=== PATIENT | female | born 1995 | race Caucasian/White ===

== ENCOUNTER 2019-03-18 11:20 | Inpatient (IN) | payer MEDICAID ==
[2019-03-18] VITALS (41 sets, daily range): BP systolic 100–148; BP diastolic 51–90
--- NOTE | 2019-03-18 11:18 | NUR ---
pt transported to labor & delivery via cart accompanied by [facility]. report received. pt assisted to bed. "limited" care reported by EMS. pt reports no care during current with . pt reports seeing "tip cutter's" when FOB passed 1.5weeks ago. "thought I was going into labor". SROM @ 0900 this a.m. reports no color to fluid- describes as cloudy. EMS staff reports pt has 2.5 year old that was delivered @ [facility] in [place], [place]. "wanted to be away from family" per EMS staff. pt gowned & urine specimen obtained. EFM and TOCO applied.
[~2019-03-18 11:20] MED LIST: ARPZ20T PO; BPR100T PO; BUPR300T51 PO; MIRT30TA6 PO; NALTREXONE PO; [UNRECOGNIZED DRUG - CODE] MC
[2019-03-18] MEDS ORDERED: MINERAL OIL CONCENTRATE 99.9% 15 ML UDC TOP SCH (11:45)
[2019-03-18] MEDS ORDERED: AMPICILLIN FOR IV USE 2,000 MG VIAL ONE ×2 (11:53→11:54)
[2019-03-18] MEDS ORDERED: WATER (STERILE) FOR INJECTION 20 ML ONE (11:54)
[2019-03-18] MEDS ORDERED: AMPICILLIN FOR IV USE 2,000 MG in WATER (STERILE) FOR INJECTION 14.8 ML IV SCH (11:59)
[2019-03-18 12:18] LABS: BASOPHILS % (AUTO) 0 % (0-10); EOSINOPHILS % (AUTO) 0 % (0-10); HEMATOCRIT 35 % (35-52); HEMOGLOBIN 11.7 G/DL (11.5-16.0); LYMPHOCYTES # (AUTO) 1.8 X 10^3 (1.0-4.0); LYMPHOCYTES % (AUTO) 25 % (12-44); MEAN CORPUSCULAR HEMOGLOBIN 27 PG (25-34); MEAN CORPUSCULAR HGB CONC 34 G/DL (32-36); MEAN CORPUSCULAR VOLUME 80 FL (80-99); MONOCYTES # (AUTO) 0.4 X 10^3 (0.0-1.0); MONOCYTES % (AUTO) 5 % (0-12); NEUTROPHILS % (AUTO) 70 % (42-75); PLATELET COUNT 269 10^3/uL (130-400); WHITE BLOOD COUNT 7.2 10^3/uL (4.3-11.0)
[2019-03-18 12:36] LABS: BILIRUBIN,URINE NEGATIVE (NEGATIVE); CLARITY,URINE CLEAR; COLOR,URINE YELLOW; GLUCOSE, URINE (UA) NEGATIVE (NEGATIVE); KETONES,URINE NEGATIVE (NEGATIVE); LEUKOCYTE ESTERASE ,URINE 1+ (NEGATIVE); NITRITE,URINE NEGATIVE (NEGATIVE); PH,URINE 7 (5-9); PROTEIN,URINE 3+ (NEGATIVE)
[2019-03-18 12:48] LABS: AMPHETAMINE SCREEN, URINE NEGATIVE (NEGATIVE); BARBITURATE SCREEN URINE NEGATIVE (NEGATIVE); BENZODIAZEPINES SCREEN URINE NEGATIVE (NEGATIVE); CANNABINOID SCREEN, URINE NEGATIVE (NEGATIVE); COCAINE SCREEN URINE NEGATIVE (NEGATIVE); METHADONE STAT NEGATIVE (NEGATIVE); METHAMPHETAMINE SCREEN URINE S POSITIVE (NEGATIVE); OPIATE SCREEN URINE NEGATIVE (NEGATIVE); OXYCODONE STAT NEGATIVE (NEGATIVE); PROPOXYPHENE STAT NEGATIVE (NEGATIVE); TRICYCLIC ANTIDEPRESSANTS SCRE NEGATIVE (NEGATIVE)
[2019-03-18 12:50] LABS: BACTERIA,URINE LARGE /HPF
[2019-03-18] MEDS ORDERED: CATHETER FLUSH 10 ML SYR IV SCH (14:00)
[2019-03-18] MEDS: AMPICILLIN FOR IV USE 1,000 MG in WATER (STERILE) FOR INJECTION 7.4 ML IV SCH ×2 (16:00→19:24)
[2019-03-18] MEDS ORDERED: OXYTOCIN/NORMAL SALINE 500 ML IV SCH ×2 (17:18→23:02)
[2019-03-18] MEDS ORDERED: OXYTOCIN/NORMAL SALINE 500 ML IV ONE (17:20)
[2019-03-18] MEDS ORDERED: SUFENTA 0.6MCG/ML BUPIVA 0.125 100 ML ONE (19:24)
[2019-03-18] MEDS: D5 LR IV SOLUTION 1,000 ML IV SCH (19:29)
[2019-03-18] MEDS ORDERED: LACTATED RINGERS 1,000 ML IV ONE (20:06)
[2019-03-18] MEDS ORDERED: ONDANSETRON 4 MG/2 ML (SDV) Z0FRAN IV PRN (20:15)
[2019-03-18] MEDS ORDERED: EPIDURAL (SUFENTA 0.6MCG/ML BUPIVA 0.125%) 100 ML BAG EPI PRN (20:15)
[2019-03-18] MEDS ORDERED: NALOXONE 0.4 MG/ML 1 ML (NARCAN) VIAL IV PRN ×2 (20:15)
[2019-03-18] MEDS ORDERED: diphenhydrAMINE 50 MG/ML INJ (BENADRYL) IV PRN (20:15)
[2019-03-18] MEDS ORDERED: METOCLOPRAMIDE INJ 10 MG/2 ML (REGLAN) IV PRN (20:15)
--- NOTE | 2019-03-18 20:19 | History & Physical-OB ---
OB - Chief Complaint & HPI Date/Time Date of Admission: Date of Admission: Mar 18, 2019 at 11:20 Date seen by a Provider: Mar 18, 2019 Time Seen by a Provider: 17:30 Chief Complaint/History OB-Reason for Admission/Chief: Rupture of Membranes Hx : 2 Hx Para: 1 Expected Date of Delivery: Mar 22, 2019 Gestational Age in Weeks: 39 Gestational Age in Days: 3 Allergies and Home Medications Allergies Coded Allergies: No Known Drug Allergies (Unverified , 04/05/12) Home Medications Aripiprazole 20 Mg Tab, 1 TAB PO HS, (Reported) DAILY Bupropion Hcl 300 Mg Tab.sr.24h, 300 MG PO DAILY, (Reported) Mirtazapine 30 Mg Tablet, 1 EACH PO HS, (Reported) [Naltrexone] , 50 MG PO DAILY, (Reported) Patient Home Medication List Home Medication List Reviewed: Yes OB - History Hx of Present Care: No Ultrasounds: No ultrasounds Medical Complications: Psychiatric Other Concerns: no care; positive UDS for meth on presentation today Delivery History Hx Blood Disorders: No Adverse Rxn to Tranfusion: No Patient Past Medical History depression/anxiety Social History/Family History Recent Infectious Disease Expo: No Alcohol Use: Denies Use Recreational Drug Use: Yes Immunizations Hepatitis A: Yes Hepatitis B: Yes OB - Admission Exam Physical Exam Vitals: Vital Signs 03/18/19 03/18/19 17:20 18:20 Temp 36.7 Pulse 97 Resp 20 B/P (MAP) 121/73 (89) Pulse Ox 100 O2 Delivery Room Air HEENT: NCAT Heart: Rhythm Normal Lungs: Clear Abdomen: Gravid Extremities: Normal Reflexes: Normal Cervical Dilatation: 5cm Effacement: 75% Station: 0 Membranes: Ruptured Amniotic Fluid: Clear Heart Rate: 130's Accelerations: Accelerations Present Decelerations: No Decelerations Short Term Variability: Present Care Home Variability: Average (6-25) Contractions on Admission: < 5 Minutes Apart Labs Laboratory Tests Test 03/18/19 11:25 03/18/19 11:55 Range/Units Urine Color YELLOW Urine Clarity CLEAR Urine pH 7 5-9 Urine Specific [place] 1.010 L 1.016-1.022 Urine Protein 3+ H NEGATIVE Urine Glucose (UA) NEGATIVE NEGATIVE Urine Ketones NEGATIVE NEGATIVE Urine Nitrite NEGATIVE NEGATIVE Urine Bilirubin NEGATIVE NEGATIVE Urine Urobilinogen NORMAL NORMAL MG/DL Urine Leukocyte Esterase 1+ H NEGATIVE Urine RBC (Auto) 4+ H NEGATIVE Urine RBC NONE /HPF Urine WBC 5-10 H /HPF Urine Squamous Epithelial Cells 5-10 /HPF Urine Crystals NONE /LPF Urine Bacteria LARGE H /HPF Urine Casts NONE /LPF Urine Mucus SMALL H /LPF Urine Culture Indicated YES Urine Opiates Screen NEGATIVE NEGATIVE Urine Oxycodone Screen NEGATIVE NEGATIVE Urine Methadone Screen NEGATIVE NEGATIVE Urine Propoxyphene Screen NEGATIVE NEGATIVE Urine Barbiturates Screen NEGATIVE NEGATIVE Ur Tricyclic Antidepressants Screen NEGATIVE NEGATIVE Urine Phencyclidine Screen NEGATIVE NEGATIVE Urine Amphetamines Screen NEGATIVE NEGATIVE Urine Methamphetamines Screen POSITIVE H NEGATIVE Urine Benzodiazepines Screen NEGATIVE NEGATIVE Urine Cocaine Screen NEGATIVE NEGATIVE Urine Cannabinoids Screen NEGATIVE NEGATIVE White Blood Count 7.2 4.3-11.0 10^3/uL Red Blood Count 4.32 L 4.35-5.85 10^6/uL Hemoglobin 11.7 11.5-16.0 G/DL Hematocrit 35 35-52 % Mean Corpuscular Volume 80 80-99 FL Mean Corpuscular Hemoglobin 27 25-34 PG Mean Corpuscular Hemoglobin Concent 34 32-36 G/DL Red Cell Distribution Width 15.0 H 10.0-14.5 % Platelet Count 269 130-400 10^3/uL Mean Platelet Volume 11.0 H 7.4-10.4 FL Neutrophils (%) (Auto) 70 42-75 % Lymphocytes (%) (Auto) 25 12-44 % Monocytes (%) (Auto) 5 0-12 % Eosinophils (%) (Auto) 0 0-10 % Basophils (%) (Auto) 0 0-10 % Neutrophils # (Auto) 5.0 1.8-7.8 X 10^3 Lymphocytes # (Auto) 1.8 1.0-4.0 X 10^3 Monocytes # (Auto) 0.4 0.0-1.0 X 10^3 Eosinophils # (Auto) 0.0 0.0-0.3 10^3/uL Basophils # (Auto) 0.0 0.0-0.1 10^3/uL OB - Assessment/Plan/Diagnosis Assessment Admission Dx PROM at 39 3/7 wga by LMP with no care- Will treat for GBS unknown. Check labs. Place IUPC and start pitocin for failure to progress. Admission Status: Inpatient Order (span 2 midnights) Reason for Inpatient Admission: Labor. Plan Plan: Other (pitocin augmentation) MASSIMO LOPEZ MD Mar 18, 2019 20:19
[2019-03-18] MEDS ORDERED: LIDOCAINE 1% INJ 20 ML 20 ML VIAL ONE (22:16)
--- NOTE | 2019-03-18 23:01 | OB Labor & Delivery Record ---
Vag Delivery Note Vag Delivery Note Date of Delivery: 03/18/19 Preoperative Diagnosis: Herlinda Coello is a (23 /Para 2 / 1, Gestational Age (wks)39with [3 days] Postoperative Diagnosis: Same Surgeon: MASSIMO LOPEZ Net Development Manager: [none] Anesthesia: [epidural] Delivery Type: [] Findings: [] Viable [male] infant, apgars [9/9], weight [8 pounds 0 ounces] Lacerations: Intact placenta with 3 vessel cord. Loose nuchal cord times one. Estimated Blood Loss: [400] ml Complications: None Condition: Stable Description of Procedure: The patient is a 23 year old female who presented [with PROM]. She was admitted and informed consent was obtained. Her labor course was remarkable for [pitocin augmentation] She progressed to complete dilatation and began to push. She was then set up for delivery. The infant's head was delivered atraumatically in the [OA] position. The shoulders and remainder of the 's body were then delivered without difficulty. Upon delivery, the head was held below the level of the perineum and the mouth and nares were bulb suctioned. The cord was doubly clamped and cut after 30 seconds on maternal abdomen. An intact placenta with 3-vessel cord delivered via Laura and there was found to be minimal bleeding.~ Vigorous fundal massage was performed and the fundus was found to be firm. IV oxytocin was given. Examination of the vagina and perineum revealed a [left clitoral and 2nd degree perineal] laceration repaired in the usual fashion with 3-0 vicryl suture. Following the repair, sponge, instrument and needle counts were correct. Mom and baby were both in stable condition in the labor suite. Vitals - Labs Vital Signs - I&O Vital Signs Date Time Temp Pulse Resp B/P (MAP) Pulse Ox O2 Delivery O2 Flow Rate FiO2 03/18/19 21:35 66 20 113/55 (74) 100 Room Air 03/18/19 21:20 66 20 113/64 (80) 100 Room Air 03/18/19 21:00 82 20 104/57 (73) 100 Room Air 03/18/19 20:45 88 20 103/56 (72) 100 Room Air 03/18/19 20:40 84 20 102/55 (71) 100 Room Air 03/18/19 20:35 90 20 110/59 (76) 100 Room Air 03/18/19 20:30 90 20 100/52 (68) 100 Room Air 03/18/19 20:25 90 20 101/51 (68) 100 Room Air 03/18/19 20:20 94 20 108/57 (74) 100 Room Air 03/18/19 20:15 77 20 108/56 (73) 100 Room Air 03/18/19 20:10 78 20 104/58 (73) 100 Room Air 03/18/19 20:05 88 20 120/70 (87) 100 Room Air 03/18/19 20:00 82 20 119/62 (81) 100 Room Air 03/18/19 19:55 102 20 128/72 (90) 100 Room Air 03/18/19 19:50 94 20 144/65 (91) 100 Room Air 03/18/19 19:45 102 20 139/78 (98) 100 Room Air 03/18/19 19:40 97 20 142/85 (104) 100 Room Air 03/18/19 19:35 94 20 148/76 (100) 100 Room Air 03/18/19 19:15 36.5 80 20 130/75 (93) 100 Room Air 03/18/19 18:20 97 20 121/73 (89) 100 Room Air 03/18/19 17:50 87 20 129/74 (92) 100 Room Air 03/18/19 17:20 36.7 75 20 131/72 (91) 100 Room Air 03/18/19 16:50 76 20 127/72 (90) 100 Room Air 03/18/19 16:20 67 20 136/75 (95) 100 Room Air 03/18/19 16:20 67 20 136/75 (95) 100 Room Air 03/18/19 15:50 87 20 125/67 (86) 100 Room Air 03/18/19 15:20 75 20 125/62 (83) 100 Room Air 03/18/19 14:50 73 20 131/69 (89) 100 Room Air 03/18/19 14:20 81 20 131/77 (95) 100 Room Air 03/18/19 13:50 76 20 132/76 (94) 100 Room Air 03/18/19 13:20 69 20 129/72 (91) 100 Room Air 03/18/19 12:50 85 20 142/82 (102) 100 Room Air 03/18/19 12:20 85 20 142/82 (102) 100 Room Air 03/18/19 11:30 37.1 88 20 99 Room Air 03/18/19 11:30 88 20 136/90 (105) 100 Room Air Labs Laboratory Tests 03/18/19 11:25: Urine Color YELLOW, Urine Clarity CLEAR, Urine pH 7, Urine Specific [place] 1.010L, Urine Protein 3+H, Urine Glucose (UA) NEGATIVE, Urine Ketones NEGATIVE, Urine Nitrite NEGATIVE, Urine Bilirubin NEGATIVE, Urine Urobilinogen NORMAL, Urine Leukocyte Esterase 1+H, Urine RBC (Auto) 4+H, Urine RBC NONE, Urine WBC 5- 10H, Urine Squamous Epithelial Cells 5-10, Urine Crystals NONE, Urine Bacteria LARGEH, Urine Casts NONE, Urine Mucus SMALLH, Urine Culture Indicated YES, Urine Opiates Screen NEGATIVE, Urine Oxycodone Screen NEGATIVE, Urine Methadone Screen NEGATIVE, Urine Propoxyphene Screen NEGATIVE, Urine Barbiturates Screen NEGATIVE, Ur Tricyclic Antidepressants Screen NEGATIVE, Urine Phencyclidine Screen NEGATIVE, Urine Amphetamines Screen NEGATIVE, Urine Methamphetamines Screen POSITIVEH, Urine Benzodiazepines Screen NEGATIVE, Urine Cocaine Screen NEGATIVE, Urine Cannabinoids Screen NEGATIVE 03/18/19 11:55: White Blood Count 7.2, Red Blood Count 4.32L, Hemoglobin 11.7, Hematocrit 35, Mean Corpuscular Volume 80, Mean Corpuscular Hemoglobin 27, Mean Corpuscular Hemoglobin Concent 34, Red Cell Distribution Width 15.0H, Platelet Count 269, Mean Platelet Volume 11.0H, Neutrophils (%) (Auto) 70, Lymphocytes (%) (Auto) 25, Monocytes (%) (Auto) 5, Eosinophils (%) (Auto) 0, Basophils (%) (Auto) 0, Neutrophils # (Auto) 5.0, Lymphocytes # (Auto) 1.8, Monocytes # (Auto) 0.4, Eosinophils # (Auto) 0.0, Basophils # (Auto) 0.0 MASSIMO LOPEZ MD Mar 18, 2019 23:01
[2019-03-18] MEDS ORDERED: TETANUS,DIPTH,PERTUSS P/F (BOOSTRIX) 0.5 ML VIAL IM ONE (23:15)
[2019-03-18] MEDS ORDERED: MEASLES,MUMPS,RUBELLA 1 EA INJ SQ ONE (23:15)
--- NOTE | 2019-03-18 23:30 | NUR ---
pt reports last meth use was around 36 hours ago. When asked if daughter lived with her pt states "she is pasted between her grandparents" states she has never lost custody of the child but the child has only lived with her for a short period.
[2019-03-18] MEDS: IBUPROFEN 600 MG (MOTRIN) TAB PO SCH (23:49)
[2019-03-18] MEDS: BENZOCAINE/MENTHOL (DERMOPLAST) 56 ML CAN TP PRN (23:49)
[2019-03-19] VITALS (12 sets, daily range): BP systolic 105–135; BP diastolic 52–77
--- NOTE | 2019-03-19 | NUR ---
epidural cath removed. pt tolerated well.
--- NOTE | 2019-03-19 01:00 | NUR ---
ff 1 below umbilicus. moderate rubra noted. pad changed. gown changed. pt assisted to w'c. pt taken down to room 309. pt orientated to room. pt denies any urge to void at this time. safety precautions given. call light within reach. pt will notify rn when urge to void.
--- NOTE | 2019-03-19 01:49 | NUR ---
pt ambulated to the bathroom, standby assistance. positive void. pt went to ambulate back to bed. became dizzy with standing. pt assisted back to toilet. pt placed in w'c and taken back to bed. call light within reach.
--- NOTE | 2019-03-19 02:15 | NUR ---
pt put construction equipment mechanic light. pt sitting up in bed. states she had a large gush of blood. large amount of blood noted in pad. pad changed and weighed (600ml) ff@u moderate rubra. 0216: notified of pt's bleeding, new order received. 0230: pt passed another large amount of blood. pad changed and weighed (365ml) ff@u moderate rubra. Pt continues to have moderate rubra. ff@u. pad changed (210ml). 0240: Pt passed large 6-7cm clot (360ml). ff@u. 0243: called with update. new orders received.
[2019-03-19] MEDS: D5 LR IV SOLUTION 1,000 ML IV SCH (02:16)
[2019-03-19] MEDS ORDERED: METHYLERGONOVINE 0.2 MG/ML (METHERGINE) AMP ONE (02:20)
[2019-03-19] MEDS ORDERED: METHYLERGONOVINE 0.2 MG/ML (METHERGINE) AMP IM ONE (02:30)
[2019-03-19] MEDS ORDERED: MISOPROSTOL 200 MCG (CYTOTEC) TABLET PR ONE (02:45)
[2019-03-19] MEDS ORDERED: MISOPROSTOL 200 MCG (CYTOTEC) TABLET ONE (02:45)
--- NOTE | 2019-03-19 03:00 | NUR ---
ff@@. light/moderate rubra. pericare completed. pad changed. will let pt rest for short period. pt understands to notify rn if any increase in bleeding occurs.
[2019-03-19] MEDS: ACETAMINOPHEN 500 MG TAB (TYLENOL) PO SCH ×3 (04:16→19:32)
--- NOTE | 2019-03-19 04:20 | NUR ---
ff 1 below umbilicus. light rubra noted. pad and panties changed. linens changed. pt requesting cold tray. sandwich tray given.
[2019-03-19 05:35] LABS: BASOPHILS % (AUTO) 0 % (0-10); EOSINOPHILS # (AUTO) 0.1 10^3/uL (0.0-0.3); EOSINOPHILS % (AUTO) 1 % (0-10); HEMATOCRIT 21 % (35-52); LYMPHOCYTES # (AUTO) 2.1 X 10^3 (1.0-4.0); LYMPHOCYTES % (AUTO) 20 % (12-44); MEAN CORPUSCULAR HEMOGLOBIN 26 PG (25-34); MEAN CORPUSCULAR HGB CONC 32 G/DL (32-36); MEAN CORPUSCULAR VOLUME 82 FL (80-99); MEAN PLATELET VOLUME 10.2 FL (7.4-10.4); MONOCYTES # (AUTO) 0.8 X 10^3 (0.0-1.0); MONOCYTES % (AUTO) 8 % (0-12); NEUTROPHILS # (AUTO) 7.3 X 10^3 (1.8-7.8); NEUTROPHILS % (AUTO) 71 % (42-75); PLATELET COUNT 200 10^3/uL (130-400); RED CELL DISTRIBUTION WIDTH 14.9 % (10.0-14.5); WHITE BLOOD COUNT 10.3 10^3/uL (4.3-11.0)
[2019-03-19 05:43] LABS: HEMOGLOBIN 6.7 G/DL (11.5-16.0)
[2019-03-19] MEDS: IBUPROFEN 600 MG (MOTRIN) TAB PO SCH ×3 (05:48→19:31)
--- NOTE | 2019-03-19 07:00 | NUR ---
pt up to the bathroom via w'c , moderate rubra noted. pt passed one clot while on the toilet. pt assisted back to bed. called with update. new orders received.
--- NOTE | 2019-03-19 08:00 | NUR ---
A.M. ASSESSMENT COMPLETED VSS. PLAN TO TRANSFUSE. PT STATES UNDERSTANDING.
[2019-03-19] MEDS ORDERED: NS IV 500 ML 500 ML ONE (08:19)
[2019-03-19] MEDS: NS IV 500 ML 500 ML IV SCH (08:25)
--- NOTE | 2019-03-19 08:25 | NUR ---
SHOWER SCREEN INSTALLER HERE TO DO PELVIC U/S.
[2019-03-19] MEDS ORDERED: fentaNYL INJECTION 100 MCG/2 ML AMP ONE (09:10)
[2019-03-19] MEDS ORDERED: fentaNYL INJECTION 100 MCG/2 ML AMP IVP PRN (09:15)
--- NOTE | 2019-03-19 09:20 | NUR ---
DILLON BY DR. LOCKHART.
--- NOTE | 2019-03-19 09:27 | Diagnostic Imaging Report ---
PROCEDURE: US PELVIC (NON OB) TECHNIQUE: Multiple real-time grayscale images were obtained over the pelvis in various projections transabdominally. INDICATION: day 1 with heavy bleeding. FINDINGS: Uterus is post-gravid measuring 20.1 x 10.5 x 10.5 cm. No myometrial mass is seen. The endometrium is thickened and heterogeneous measuring up to 4.6 cm in diameter. No vascularity to the endometrium is seen. Ovaries could not be visualized. No adnexal mass or free fluid is seen. IMPRESSION: Thickened, heterogeneous endometrium measuring up to 4.6 cm. This likely contains blood products. There is no evidence of vascularized retained products of conception at this time. Dictated by: Dictated on workstation # [id number]
--- NOTE | 2019-03-19 09:30 | NUR ---
PRC'S STARTED PER PROTOCOL. SEE TRANSFUSION INTERVENTION.
[2019-03-19] MEDS ORDERED: METHYLERGONOVINE 0.2 MG (MEHTERGINE) TAB PO ONE (09:55)
[2019-03-19] MEDS ORDERED: METHYLERGONOVINE 0.2 MG (MEHTERGINE) TAB PO SCH (10:00)
--- NOTE | 2019-03-19 10:30 | NUR ---
DOING WELL. THIS RN FED INFANT. MOM REQUESTS TO GO TO NURSERY IF ABLE.
--- NOTE | 2019-03-19 11:08 | NUR ---
CM/SS completed a report to [place] Department Technical Support 1 Software Engineer due to concerns of drug use, lack of care.
--- NOTE | 2019-03-19 11:15 | NUR ---
DR. CONNOR IN TO SEE PT. BLOOD CONTINUES.
--- NOTE | 2019-03-19 11:15 | NUR ---
UP TO BSC WITH ASSIST. VAGINAL BLEEDING LIGHT. DR. CONNOR IN ROOM TALKING TO PT. FF. BACK TO BED WITHOUT PROBLEMS.
[2019-03-19] MEDS: DOCUSATE SODIUM 100 MG (COLACE) CAP PO SCH ×2 (11:25→21:26)
--- NOTE | 2019-03-19 11:30 | NUR ---
BLOOD TRANSFUSION COMPLETE. SEE TRANSFUSION RECORD FOR DOCUMENTATION.
[2019-03-19] MEDS ORDERED: FLU QUADRIvalent (5+ YOA) 2019-2020 (AFLURIA) 0.5 ML IM ONE (11:45)
--- NOTE | 2019-03-19 12:02 | NUR ---
CM/SS [place] Department Commuter Pilot (Carole, ) called in regards to the report. She will ask [place] [facility] to do a courtesy visit with the MOB.
--- NOTE | 2019-03-19 14:00 | Anesthesia-Regional Post-Op ---
Regional Patient Condition Mental Status: Alert, Oriented x3 Circulation: Same as Pre-Op Headache: Absent Sensation: Full Recovery Motor Block: Absent Post Op Complications Complications None Follow Up Care/Instructions Patient Instructions None needed. Anesthesia/Patient Condition Patient is doing well, C/O minimal back pain which is to be expected, stable vital signs, no apparent adverse anesthesia problems. HARRISON DE ANDA DO Mar 19, 2019 14:00 POS
--- NOTE | 2019-03-19 14:15 | NUR ---
FF U/1. VAG FLOW LT RUBRA. PT DOZING AT INTERVALS.
[2019-03-19 14:25] LABS: BASOPHILS % (AUTO) 0 % (0-10); EOSINOPHILS # (AUTO) 0.1 10^3/uL (0.0-0.3); EOSINOPHILS % (AUTO) 1 % (0-10); HEMATOCRIT 25 % (35-52); LYMPHOCYTES # (AUTO) 2.7 X 10^3 (1.0-4.0); LYMPHOCYTES % (AUTO) 26 % (12-44); MEAN CORPUSCULAR HEMOGLOBIN 27 PG (25-34); MEAN CORPUSCULAR HGB CONC 33 G/DL (32-36); MEAN CORPUSCULAR VOLUME 83 FL (80-99); MEAN PLATELET VOLUME 9.9 FL (7.4-10.4); MONOCYTES # (AUTO) 0.8 X 10^3 (0.0-1.0); MONOCYTES % (AUTO) 8 % (0-12); NEUTROPHILS # (AUTO) 6.7 X 10^3 (1.8-7.8); NEUTROPHILS % (AUTO) 65 % (42-75); PLATELET COUNT 186 10^3/uL (130-400); RED CELL DISTRIBUTION WIDTH 15.4 % (10.0-14.5); WHITE BLOOD COUNT 10.3 10^3/uL (4.3-11.0)
--- NOTE | 2019-03-19 15:20 | NUR ---
DR. CONNOR NOTIFIED OF CBC RESULTS. NEW ORDERS RECEIVED.
[2019-03-19] MEDS ORDERED: IRON SUCROSE 200 MG/10 ML (VENOFER) VIAL IV NR (16:30)
--- NOTE | 2019-03-19 16:37 | NUR ---
PT CONTINUES TO SLEEP. INFANT HAS BEEN IN RN'S CARE FOR MAJORITY OF SHIFT. INFORMED PT ABOUT IRON IV THAT DR. CONNOR ORDERED. PT OPENED EYES AND NODDED STATING SHE IS STILL VERY TIRED. VENOFER 200 MG GIVEN IV OVER [address] CONNOR ORDER. FF U/0. VAG FLOW LT RUBRA.
[2019-03-19] MEDS: METHYLERGONOVINE 0.2 MG (MEHTERGINE) TAB PO SCH (16:38)
--- NOTE | 2019-03-19 16:45 | NUR ---
IV TO SALINE LOCK PER DR. CONNOR ORDER.
--- NOTE | 2019-03-19 18:00 | NUR ---
CONTINUES TO REST. PT AROUSES WHEN SPOKEN TO. FUNDAL CHECK AND PAD CHECK FREQUENTLY BY THIS RN. FUNDUS REMAINS FIRM AT U/1. BLEEDING LT.
[2019-03-19] MEDS: WITCH HAZEL(TUCKS) 40 EA JAR TOP PRN (19:31)
--- NOTE | 2019-03-19 19:42 | NUR ---
ASSISTED UP TO THE BATHROOM. LARGE VOID. PERICARE PERFORMED. BACK TO BED WITHOUT PROBLEMS. NO C/O DIZZINESS. VAGINAL BLEEDING LT RUBRA.
--- NOTE | 2019-03-19 20:55 | Postpartum Progress Note ---
Note Note Day # 1 Subjective: Patient is without complaints. Ambulating, voiding. Tolerating a regular diet without nausea or vomiting. Large blood clot expressed this AM. Pain is well controlled with oral pain medications. Bottle feeding. Some dizziness with ambulation but it is improving Objective: Physical Exam: General - Alert and oriented, no apparent distress Abdomen - Soft, appropriately tender to palpation, non-distended, fundus firm at umbilicus Extremities - no edema, negative Anahi's bilaterally Assessment: 23 yo G2 now P2 post- day # 1, status post complicated vaginal delivery with post hemorrhage Recovering well, hemodynamically stable Plan: Routine care Encourage ambulation. Post Hemorrhage: s/p 1 unit pRBCs and 1 dose of venofer, Hgb in AM + UDS for meth: SW consult placed F/u with PCP 6 week post visit Vitals - Labs Vital Signs - I&O Vital Signs Date Time Temp Pulse Resp B/P (MAP) Pulse Ox O2 Delivery O2 Flow Rate FiO2 03/19/19 16:45 36.4 74 18 105/69 (81) 98 Room Air 03/19/19 11:30 36.8 85 18 130/52 100 Room Air 03/19/19 11:30 36.8 85 18 130/52 (78) 100 Room Air 03/19/19 09:45 36.8 76 18 126/56 100 Room Air 03/19/19 09:30 37.2 81 18 131/77 100 Room Air 03/19/19 08:00 36.9 80 18 121/57 (78) 100 Room Air 03/19/19 05:48 37.0 78 20 127/72 (90) Room Air 03/19/19 04:18 37.3 85 20 115/65 (82) Room Air 03/19/19 03:00 87 20 113/59 (77) Room Air 03/19/19 02:30 80 20 135/62 (86) Room Air 03/19/19 00:20 37.0 76 20 116/62 (80) Room Air 03/19/19 00:05 37.0 98 20 128/63 (84) Room Air 03/18/19 23:50 37.0 87 20 122/56 (78) Room Air 03/18/19 23:35 108 20 134/61 (85) Room Air 03/18/19 23:20 112 20 120/82 (95) Room Air 03/18/19 23:05 37.0 113 20 119/70 (86) Room Air 03/18/19 22:35 134 20 144/80 (101) Room Air 03/18/19 22:20 90 20 123/75 (91) Room Air 03/18/19 22:05 66 20 117/61 (79) Room Air 03/18/19 21:50 69 20 116/63 (80) 100 Room Air 03/18/19 21:35 66 20 113/55 (74) 100 Room Air 03/18/19 21:20 66 20 113/64 (80) 100 Room Air 03/18/19 21:00 82 20 104/57 (73) 100 Room Air Labs Laboratory Tests 03/19/19 05:10: White Blood Count 10.3, Red Blood Count 2.55L, Hemoglobin 6.7#*L, Hematocrit 21L , Mean Corpuscular Volume 82, Mean Corpuscular Hemoglobin 26, Mean Corpuscular Hemoglobin Concent 32, Red Cell Distribution Width 14.9H, Platelet Count 200, Mean Platelet Volume 10.2, Neutrophils (%) (Auto) 71, Lymphocytes (%) (Auto) 20, Monocytes (%) (Auto) 8, Eosinophils (%) (Auto) 1, Basophils (%) (Auto) 0, Neutrophils # (Auto) 7.3, Lymphocytes # (Auto) 2.1, Monocytes # (Auto) 0.8, Eosinophils # (Auto) 0.1, Basophils # (Auto) 0.0 03/19/19 14:18: White Blood Count 10.3, Red Blood Count 2.98L, Hemoglobin 8.0L, Hematocrit 25L, Mean Corpuscular Volume 83, Mean Corpuscular Hemoglobin 27, Mean Corpuscular Hemoglobin Concent 33, Red Cell Distribution Width 15.4H, Platelet Count 186, Mean Platelet Volume 9.9, Neutrophils (%) (Auto) 65, Lymphocytes (%) (Auto) 26, Monocytes (%) (Auto) 8, Eosinophils (%) (Auto) 1, Basophils (%) (Auto) 0, Neutrophils # (Auto) 6.7, Lymphocytes # (Auto) 2.7, Monocytes # (Auto) 0.8, Eosinophils # (Auto) 0.1, Basophils # (Auto) 0.0 Microbiology 03/18/19 Urine Culture - Final, Complete 3 or more isolates CARLI CONNOR MD Mar 19, 2019 20:55 POS
--- NOTE | 2019-03-19 21:31 | NUR ---
Dr. Stanton notified that lab is having trouble with blood draw. Will notify with result when obtained.
[2019-03-19 22:20] LABS: BASOPHILS % (AUTO) 0 % (0-10); EOSINOPHILS # (AUTO) 0.1 10^3/uL (0.0-0.3); EOSINOPHILS % (AUTO) 1 % (0-10); HEMATOCRIT 22 % (35-52); HEMOGLOBIN 7.5 G/DL (11.5-16.0); LYMPHOCYTES # (AUTO) 1.8 X 10^3 (1.0-4.0); LYMPHOCYTES % (AUTO) 21 % (12-44); MEAN CORPUSCULAR HEMOGLOBIN 28 PG (25-34); MEAN CORPUSCULAR HGB CONC 34 G/DL (32-36); MEAN CORPUSCULAR VOLUME 83 FL (80-99); MEAN PLATELET VOLUME 10.1 FL (7.4-10.4); MONOCYTES # (AUTO) 0.7 X 10^3 (0.0-1.0); MONOCYTES % (AUTO) 8 % (0-12); NEUTROPHILS # (AUTO) 5.9 X 10^3 (1.8-7.8); NEUTROPHILS % (AUTO) 70 % (42-75); PLATELET COUNT 165 10^3/uL (130-400); WHITE BLOOD COUNT 8.5 10^3/uL (4.3-11.0)
--- NOTE | 2019-03-19 23:21 | NUR ---
Dr. Stanton notified of repeat hemoglobin. No new orders received.
[2019-03-20] VITALS (7 sets, daily range): BP systolic 101–124; BP diastolic 51–67
[2019-03-20] MEDS ORDERED: METHYLERGONOVINE 0.2 MG (MEHTERGINE) TAB PO ONE ×2 (01:39→09:55)
[2019-03-20] MEDS: METHYLERGONOVINE 0.2 MG (MEHTERGINE) TAB PO SCH ×2 (01:42→09:57)
[2019-03-20] MEDS: ACETAMINOPHEN 500 MG TAB (TYLENOL) PO SCH ×5 (01:42→22:58)
[2019-03-20] MEDS: IBUPROFEN 600 MG (MOTRIN) TAB PO SCH ×4 (01:42→21:13)
[2019-03-20 06:18] LABS: BASOPHILS % (AUTO) 0 % (0-10); EOSINOPHILS # (AUTO) 0.1 10^3/uL (0.0-0.3); EOSINOPHILS % (AUTO) 1 % (0-10); HEMATOCRIT 22 % (35-52); LYMPHOCYTES # (AUTO) 2.4 X 10^3 (1.0-4.0); LYMPHOCYTES % (AUTO) 25 % (12-44); MEAN CORPUSCULAR HEMOGLOBIN 27 PG (25-34); MEAN CORPUSCULAR HGB CONC 32 G/DL (32-36); MEAN CORPUSCULAR VOLUME 84 FL (80-99); MEAN PLATELET VOLUME 10.7 FL (7.4-10.4); MONOCYTES # (AUTO) 0.6 X 10^3 (0.0-1.0); MONOCYTES % (AUTO) 7 % (0-12); NEUTROPHILS # (AUTO) 6.2 X 10^3 (1.8-7.8); NEUTROPHILS % (AUTO) 67 % (42-75); PLATELET COUNT 184 10^3/uL (130-400); RED CELL DISTRIBUTION WIDTH 15.2 % (10.0-14.5); WHITE BLOOD COUNT 9.3 10^3/uL (4.3-11.0)
--- NOTE | 2019-03-20 07:02 | NUR ---
Dr. Stanton notified of hgb from morning lab draw. Orders received to order 1 unit of blood.
--- NOTE | 2019-03-20 08:00 | NUR ---
ASSESSMENT COMPLETED. PT GIGGLING AND ACTS VERY DIFFERENT THAN SHE DID YESTERDAY. DENIES ANY PAIN.
[2019-03-20] MEDS: NS IV 500 ML 500 ML IV SCH ×2 (08:35→23:39)
[2019-03-20] MEDS: DOCUSATE SODIUM 100 MG (COLACE) CAP PO SCH ×2 (08:48→21:13)
--- NOTE | 2019-03-20 09:18 | NUR ---
TRANSFUSION OF PRC'S STARTED PER DR. CONNOR ORDER. SEE TRANSFUSION RECORD.
[2019-03-20] MEDS ORDERED: TETANUS,DIPTH,PERTUSS P/F (BOOSTRIX) 0.5 ML VIAL IM ONE (09:29)
[2019-03-20] MEDS ORDERED: FLU QUADRIvalent (5+ YOA) 2019-2020 (AFLURIA) 0.5 ML IM ONE (09:29)
--- NOTE | 2019-03-20 09:33 | NUR ---
JUNIE FROM [facility] CALLED TO TALK WITH PT.
--- NOTE | 2019-03-20 09:44 | NUR ---
RICHIE/LUNA spoke with Carole [place] Dept. Material Damage Appraiser and she asked that the toxicology reports be sent, sent to the fax number she provided. Carole is to be having a phone conference with the family this day to address placement of the baby.
--- NOTE | 2019-03-20 10:02 | NUR ---
FLU VACCINE GIVEN IM IN RIGHT DELTOID. SITE CLEAR. TDAP VACCINE GIVEN IM IN LEFT DELTOID. SITE CLEAR. PT UPSET AFTER PHONE CALL FROM JUNIE WITH [facility] IN [place] REGARDING INFANT NOT GOING HOME WITH HER. TEARFUL.
--- NOTE | 2019-03-20 10:54 | NUR ---
LUIS FROM DCF HERE TO TALK WITH PT. CHRIS GARCIA PATIENT RELATIONS MANAGER NOTIFIED OF LUIS WANTING TO TALK WITH HER.
--- NOTE | 2019-03-20 11:45 | NUR ---
BLOOD TRANSFUSION COMPLETE. IV TO SALINE LOCK PER ORDER.SITE CLEAR.
--- NOTE | 2019-03-20 13:00 | NUR ---
PT ON CONFERENCE CALL WITH DCF AND OTHERS.
--- NOTE | 2019-03-20 14:00 | NUR ---
CM/SS attempted to visit with the patient. She was on the phone at this time. Will attempt to visit later.
--- NOTE | 2019-03-20 14:00 | NUR ---
PT REMAINS ON THE PHONE.
--- NOTE | 2019-03-20 15:00 | NUR ---
EATING LATE LUNCH. PT UPSET AND SAYING "EVERYONE WILL PROBABLY NOT WANT ANYTHING TO DO WITH ME". STATES NOW HER PARENTS NOT ONLY KNOW ABOUT HER HAVING A BABY BUT ABOUT HER DRUG USE. ALLOWED PT TO VOICE HER CONCERNS. REASSURANCE GIVEN NOT TO GIVE UP AND TO DO THE TREATMENT TO GET BETTER.
--- NOTE | 2019-03-20 15:59 | NUR ---
CM/SS spoke with the patient about her current situation. Patient stated she knew was likely that baby was not going to get to go with her. She stated that during her last she drank alcohol, which she did not drink alcohol this but did use methamphetamines on occasions, with the most recent use being on 03/17/19. She stated that she has never had alcohol / drug treatment but has been in mental health treatment previously. She stated that she has not had mental health services for the last 2.5years though. She discussed that the FOAnai Ragland couple weeks ago of pancreatic cancer, that they knew about. She was to continue a relationship with Lizzy (Obie's ) to raise the child after his passing.
--- NOTE | 2019-03-20 17:07 | NUR ---
PT'S PARENTS HERE TO SEE PT AND THEN BABY IN THE NURSERY.
--- NOTE | 2019-03-20 18:00 | NUR ---
PT SLEEPING WHEN ENTERED ROOM. AWAKENED AND TALKED BRIEFLY TO THIS RN. VSS.
[2019-03-20] MEDS: CATHETER FLUSH 10 ML SYR IV SCH ×2 (22:00→23:39)
--- NOTE | 2019-03-20 22:44 | Postpartum Progress Note ---
Note Note Day # 2 Subjective: Patient is without complaints. Ambulating, voiding. Tolerating a regular diet without nausea or vomiting. Normal lochia. Pain is well controlled with oral pain medications. is not in room as grandmother is going to take infant home. Patient has not been caring for infant today. Objective: Physical Exam: General - Alert and oriented, no apparent distress Abdomen - Soft, appropriately tender to palpation, non-distended, fundus firm at umbilicus Extremities - no edema, negative Anahi's bilaterally Assessment: 23 yo G2 now P2 post- day # 2, status post spontaneous vaginal delivery Recovering well, hemodynamically stable Plan: Routine care. Drug use in , SW consulted and family meeting today, grandmother to take at discharge Encourage ambulation. Post hemorrhage: Ferrous sulfate supplementation BID, s/p pRBCs x2 Plan for discharge tomorrow Vitals - Labs Vital Signs - I&O Vital Signs Date Time Temp Pulse Resp B/P (MAP) Pulse Ox O2 Delivery O2 Flow Rate FiO2 03/20/19 18:00 37.2 60 18 115/56 (75) 98 Room Air 03/20/19 11:45 37.1 87 18 107/51 (69) 99 Room Air 03/20/19 11:45 37.1 87 18 107/51 99 Room Air 03/20/19 09:36 37.2 73 16 113/59 (77) 99 Room Air 03/20/19 09:33 37.2 73 16 113/59 100 Room Air 03/20/19 09:15 36.7 77 18 124/61 (82) 99 Room Air 03/20/19 09:15 36.7 77 18 124/61 99 Room Air 03/20/19 04:10 36.8 67 16 117/67 (84) 100 Room Air 03/20/19 00:15 36.1 65 16 101/65 (77) 98 Room Air I & O 03/20/19 07:00 Intake Total 1250 ml Balance 1250 ml Labs Laboratory Tests 03/20/19 06:00: White Blood Count 9.3, Red Blood Count 2.61L, Hemoglobin 7.0L, Hematocrit 22L, Mean Corpuscular Volume 84, Mean Corpuscular Hemoglobin 27, Mean Corpuscular Hemoglobin Concent 32, Red Cell Distribution Width 15.2H, Platelet Count 184, Mean Platelet Volume 10.7H, Neutrophils (%) (Auto) 67, Lymphocytes (%) (Auto) 25, Monocytes (%) (Auto) 7, Eosinophils (%) (Auto) 1, Basophils (%) (Auto) 0, Neutrophils # (Auto) 6.2, Lymphocytes # (Auto) 2.4, Monocytes # (Auto) 0.6, Eosinophils # (Auto) 0.1, Basophils # (Auto) 0.0 Microbiology 03/18/19 Urine Culture - Final, Complete 3 or more isolates CARLI CONNOR MD Mar 20, 2019 22:44 POS
[2019-03-21 00:12] VITALS: BP 121/71
[2019-03-21] MEDS: ACETAMINOPHEN 500 MG TAB (TYLENOL) PO SCH ×3 (00:12→14:54)
[2019-03-21 02:56] VITALS: BP 128/70
[2019-03-21] MEDS: IBUPROFEN 600 MG (MOTRIN) TAB PO SCH ×3 (02:56→16:22)
[2019-03-21] MEDS: CATHETER FLUSH 10 ML SYR IV SCH ×3 (05:40→05:43)
[2019-03-21 06:59] LABS: BASOPHILS % (AUTO) 0 % (0-10); EOSINOPHILS # (AUTO) 0.1 10^3/uL (0.0-0.3); EOSINOPHILS % (AUTO) 1 % (0-10); HEMATOCRIT 21 % (35-52); LYMPHOCYTES # (AUTO) 2.2 X 10^3 (1.0-4.0); LYMPHOCYTES % (AUTO) 26 % (12-44); MEAN CORPUSCULAR HEMOGLOBIN 28 PG (25-34); MEAN CORPUSCULAR HGB CONC 33 G/DL (32-36); MEAN CORPUSCULAR VOLUME 83 FL (80-99); MEAN PLATELET VOLUME 10.5 FL (7.4-10.4); MONOCYTES # (AUTO) 0.5 X 10^3 (0.0-1.0); MONOCYTES % (AUTO) 6 % (0-12); NEUTROPHILS # (AUTO) 5.5 X 10^3 (1.8-7.8); NEUTROPHILS % (AUTO) 66 % (42-75); PLATELET COUNT 191 10^3/uL (130-400); RED CELL DISTRIBUTION WIDTH 15.1 % (10.0-14.5); WHITE BLOOD COUNT 8.4 10^3/uL (4.3-11.0)
[2019-03-21 07:00] LABS: HEMOGLOBIN 6.8 G/DL (11.5-16.0)
[2019-03-21] MEDS ORDERED: FERROUS SULF 325 MG (IRON) TAB PO SCH (07:00)
[2019-03-21 09:00] VITALS: BP 119/73
--- NOTE | 2019-03-21 09:00 | NUR ---
A.M. ASSESSMENT COMPLETED. VSS. AWAKENED PT TO EAT BREAKFAST. SET UP SHOWER AND ENCOURAGED PT TO TAKE A SHOWER.
[2019-03-21] MEDS: DOCUSATE SODIUM 100 MG (COLACE) CAP PO SCH (09:42)
--- NOTE | 2019-03-21 10:00 | NUR ---
DR. CONNOR IN TO SEE PT. TALKING AT LENGTH WITH PT ABOUT F/U CARE. SEE DR. CONNOR'S NOTES. PT UNSURE OF WHERE SHE WILL GO TO LIVE NOW. ENCOURAGED PT TO MAKE SOME PHONE CALLS TO GET THAT FIGURED OUT.
--- NOTE | 2019-03-21 12:00 | NUR ---
PT CONTINUES TO SLEEP IN BETWEEN THIS RN'S VISITS. AWAKENING PT FOR MEDICATIONS AND TO CHECK ON HER STATUS. C/O BEING VERY TIRED. ENCOURAGEMENT AND SUPPORT GIVEN.
--- NOTE | 2019-03-21 13:15 | NUR ---
SLEEPING WHEN ENTERED ROOM. VSS.
[2019-03-21 13:30] VITALS: BP 108/52
[2019-03-21] MEDS: BENZOCAINE/MENTHOL (DERMOPLAST) 56 ML CAN TP PRN (14:45)
[2019-03-21] MEDS: WITCH HAZEL(TUCKS) 40 EA JAR TOP PRN (14:45)
--- NOTE | 2019-03-21 14:52 | NUR ---
PROFESSOR OF ENGINEERING [employer] NOTIFIED OF PT AND SITUATION. WILL TRY TO COME SEE PT WHEN AVAILABLE.
--- NOTE | 2019-03-21 15:00 | NUR ---
PT HAS SLEPT MOST OF THE DAY. AWAKENED PT AGAIN TO SEE IF SHE HAD GOTTEN IN CONTACT WITH ANYONE TO BE ABLE TO GO HOME TO. STATES HER PHONE WON'T CALL. THIS RN DIALED THE NUMBER GIVEN AND PT LEFT A MESSAGE FOR "JOSÉ."
--- NOTE | 2019-03-21 15:15 | NUR ---
[facility] HERE TO SEE PT.
--- NOTE | 2019-03-21 16:06 | NUR ---
CM/SS spoke with the patient to assess needs upon discharge. Plan: The patient stated that she called her father and he will be here to pick her up around 5 p.m. today 03/21/19. The patient plans to stay either with her parents till Tuesday or with her sister till she can go back home. The patient has an appointment with [facility] for alcohol and drug treatment on Tuesday. Summary: The patient seemed more agitated today due to her friend not wanting her to come back home. The patient is aware of the chances of post depression. CM/SS provided her with [facility] number. Patient verbalized understanding. No other needs at this time.
--- NOTE | 2019-03-21 16:11 | Discharge Summary ---
Diagnosis/Chief Complaint Date of Admission Mar 18, 2019 at 11:20 Date of Discharge Discharge Summary-Simple/Stand Discharge Physical Examination Allergies: Coded Allergies: No Known Drug Allergies (Unverified , 04/05/12) Vitals & I&Os Vital Sign - Last 12Hours Date Time Temp Pulse Resp B/P (MAP) Pulse Ox O2 Delivery O2 Flow Rate FiO2 03/21/19 13:30 36.7 74 18 108/52 (70) 99 Room Air Hospital Course See final discharge diagnosis. Discharge Instructions to patient/family Please see electronic discharge instructions given to patient. Discharge Medications Reviewed and agree with Discharge Medication list on patient's Discharge Instruction sheet Clinical Quality Measures DVT/VTE Risk/Contraindication: Risk Factor Score Per Nursin RFS Level Per Nursing on Admit: 1=Low/No VTE PPX CARLI CONNOR MD Mar 21, 2019 16:11 POS
[2019-03-21] MEDS ORDERED: FERR325T18 PO (16:14)
[2019-03-21] MEDS ORDERED: SERT25TA PO (16:14)
[2019-03-21] MEDS ORDERED: IBUP-844 PO (16:14)
--- NOTE | 2019-03-21 16:17 | Discharge Instructions ---
Discharge Inst-[facility] Reconcile Patient Problems Problems Reviewed?: Yes Depart Medications New, Converted or Re-Newed RX: Transmitted to Pharmacy New Medications: Sertraline HCl (Zoloft) 25 Mg Tablet 25 MG PO DAILY, #30 TAB Ferrous Sulfate (Ferrous Sulfate) 325 Mg Tablet 325 MG PO BID WITH MEALS, #60 TAB Ibuprofen (Ibu) 600 Mg Tablet 600 MG PO Q6HR, #90 TAB Discontinued Medications: Aripiprazole (Abilify 20 Mg) 20 Mg Tab 1 TAB PO HS, TAB DAILY Bupropion Hcl (Bupropion Xl) 300 Mg Tab.sr.24h 300 MG PO DAILY Mirtazapine (Mirtazapine 30 Mg) 30 Mg Tablet 1 EACH PO HS [Naltrexone] () 50 MG PO DAILY Follow Up/Instructions Goal/Follow Up: You have an appt with [facility] on Friday 03/23 @ [address] Stanton for post visit Activity Activity: Activity as Tolerated Driving Instructions: You May Drive NO SMOKING: NO SMOKING Nothing Inside Vagina: No Douching, No [place], No Tampons Diet Discharge Diet: No Restrictions Symptoms to Report to : Bleeding Excessive, Fever Over 101 Degrees F, Lightheadedness, Dizziness/Fainting, Nausea/Vomiting For Any Problems or Questions: Contact Your Physician CARLI STANTON MD Mar 21, 2019 16:17 POS
--- NOTE | 2019-03-21 17:00 | NUR ---
CHAPLAIN CORBIN TO ROOM TO VISIT WITH PT. CLOTHING OBTAINED FOR PT TO WEAR HOME.
--- NOTE | 2019-03-21 17:30 | NUR ---
DISCHARGE INSTRUCTIONS REVIEWED WITH PT AND FATHER AND COPY GIVEN. STATES UNDERSTANDING OF ALL INSTRUCTIONS AND NEED TO F/U SCHEDULED AND NEEDED. STRESSED IMPORTANCE OF KEEPING APPOINTMENT AT THE [facility].
[2019-03-21 17:40] VITALS: BP 108/52
--- NOTE | 2019-03-21 17:40 | NUR ---
DISMISSED AMB FROM [facility] IN ST[facility] TO [facility] BY FATHER AND CEDRICK LUIS.
--- NOTE | 2019-03-21 18:00 | NUR ---
Foil Cutter referral: engaged in rapport building. I introduced myself and described my supportive, non-judgmental role as sex offender treatment professional. She welcomed me to sit and visit. The Pt shared that she moved out of her parents' house when she was 18 because she "wanted to get away and have a life." She said she did not want to go into details, but her home life was "rough." She said she met the baby's dad, Wes about 3 years ago through Wes's Adrienne. The pt described that an intimate relationship developed between Wes and herself on the premise that Adrienne could not conceive, and they wanted to have a child. The pt said Wes was "very lutheran" and that God spoke to him. She said Wes told her that God said it was okay for him and the pt to conceive a child together with the plan that the pt, Adrienne, and Wes would raise the child together. During this time the pt lived with Wes and Adrienne. The pt then became tearful stating that Wes was diagnosed with cancer a year ago and two weeks ago. Pt demonstrated she was normalized to this relationship, and stated Adrienne planned to help raise the child with the pt until DCF became involved. The pt said she will not be going to live with Adrienne with her son, but hopes to get him back. The pt said she was going to live with her parents for now, but that said she wants to return to live with Adrienne. In our conversation I asked the pt about the tattoos on her arms (and noticed cutting scars). She said Wes told her that one of her tattoos was a symbol to the keys of hell, and that she could get a scripture verse tattooed by it to keep "demons from entering her." She said she has "dealt with demons before." She did not elaborate on that point except to say "it's a long story and complicated." I asked her what she thought about Wes's advice, and she said she noticed the tattoo was already fading so it did not matter. 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 She said she put the tattoo over her her scars adding, "now I just sleep instead of cutting." The pt's father arrived near the conclusion of our visit. As the pt collected her clothing, she said her clothes were soaked in amniotic fluid and she expressed intention of wearing them home. I then contacted Brooke Navarro in the ER to obtain access to clothing donated to the hospital by [employer] and gave the pt a pair of sweats and a sweatshirt, which proved to fit well. She only had flip flops, but said she did not want any additional footwear. She thanked me for listening and giving her the clothes stating, "these are much nicer than my other clothes." The baby's name is Jefe, after his dad.
== END 2019-03-21 17:40 | disposition home or self-care (01) | DRG 768 ==
LOC: LDRP 11:20
PROVIDERS: ADMIT Family Medicine; ATTEND Family Medicine
PROC: 0KQM0ZZ Repair Perineum Muscle, Open Approach (ICD-10-PCS; principal; 2019-03-18)
PROC: 0UQJXZZ Repair Clitoris, External Approach (ICD-10-PCS; principal; 2019-03-18)
PROC: 10E0XZZ Delivery of Products of Conception, External Approach (ICD-10-PCS; principal; 2019-03-18)
DX: O42.02 Full-term premature rupture of membranes, onset of labor within 24 hours of rupture (principal); Z37.0 Single live birth; O72.1 Other immediate postpartum hemorrhage; F41.9 Anxiety disorder, unspecified; F32.9 Major depressive disorder, single episode, unspecified; O70.1 Second degree perineal laceration during delivery; O71.89 Other specified obstetric trauma; Z3A.39 39 weeks gestation of pregnancy
CPT/HCPCS: 36415; 76856; 80306; 81000; 85025; 86703; 86765; 86780; 86850; 86900; 86901; 86920; 87088; 87340; 87491; 87591; 90715; 99212